=== PATIENT | male | born 1955 | race Caucasian/White ===

== ENCOUNTER 2022-05-05 13:35 | Outpatient (CLI) | payer MEDICARE, SELFPAY | END 2022-05-05 13:36 | disposition home or self-care (01) | PROVIDERS: PCP Specialist; Visit Provider Specialist | DX: L91.8 Other hypertrophic disorders of the skin (principal); L82.1 Other seborrheic keratosis | CPT/HCPCS: 88304; 88305 ==

== ENCOUNTER 2023-01-11 00:24 | Day surgery (SDC) | payer MEDICARE, SELFPAY ==
[2022-12-29 13:12] VITALS: BMI 31.6
[2023-01-11 11:54] VITALS: BP 163/71; PULSE 68; RESP 18; TEMP 36.2; O2SAT 98
--- NOTE | 2023-01-11 12:02 | P.HP_ITS ---
History of Present Illness History of Present Illness Consent: Risks, benefits, and alternatives have been discussed and questions answered. Patient agrees to proceed with procedure. Chief complaint: neoplasm screening Narrative: Hipolito Arreola is a 67 year old male Presents for screening colonoscopy. Patient reports prior colonoscopy 15 or 18 years ago was unremarkable. Patient reports his current weight appetite and bowel movements are normal. He occa sionally has bright red blood per rectum with wiping that he attributes to hemorrhoids. This occurs every couple weeks or so. Patient denies abdominal or rectal pain. Family history noncontributory. [facility] Family History Family History (Updated 06/10/22 @ 14:10 by JARRED Tan) Mother Anxiety Social History Social History (Updated 06/10/22 @ 14:11 by JARRED Tan) Smoking status: Never smoker Alcohol intake: current Substance use: never Substance use type: does not use Lack of Transportation: No Lack of Food: Never True Current Housing: I Have Housing Concerned About Future Housing: No Difficulty Paying Gas/Electric Bills: No Difficulty Paying for Meds: No Currently Unemployed: No Education: High School Diploma/GED Difficulty w/ Childcare or Family Care: No Living arrangements: other Additional living arrangements comments: with sp Occupation/Education: retired Gender identity (if verbalized by the patient): Male Meds Home Medications and Allergies Home Medications Medication Instructions Recorded Confirmed Type fluticasone propionate 50 50 mcg intranasal DAILY 06/10/22 01/11/23 History mcg/actuation nasal spray,suspension sodium chloride 0.65 % nasal spray 1 spray intranasal DAILY 12/29/22 01/11/23 History aerosol (Saline Nasal Mist) sumatriptan succinate 25 mg tablet 25 mg PO DAILY 12/29/22 01/11/23 History Allergies Allergy/AdvReac Type Severity Reaction Status Date / Time Penicillins Allergy Unknown Unknown Verified 01/11/23 11:45 Vital Signs Vital Signs - 24 hr 01/11/23 11:54 Temperature 97.1 F L Pulse Rate 68 Respiratory Rate 18 Blood Pressure 163/71 H Pulse Oximetry 98 Oxygen Delivery Room Air Exam Narrative: Physical exam reveals patient to be alert. Vital signs stable. HEENT exam is unremarkable. Patient is anicteric. Lungs are clear to auscultation and percussion. Heart is without murmur or extra sounds. Abdomen bowel sounds are present soft nontender with no organomegaly. Digital external rectal exam normal. Assessment and Plan Assessment and plan (1) Encounter for screening colonoscopy: Code(s): Z12.11 - Encounter for screening for malignant neoplasm of colon Status: Acute Assessment and Plan: Patient presents for screening colonoscopy. He appears to be at the average risk for colon polyps. Further recommendations will be given after endoscopy. (2) Rectal bleeding: Code(s): K62.5 - Hemorrhage of anus and rectum Status: Acute Assessment and Plan: Patient notes occasional bright red blood per rectum with wiping this may be from hemorrhoids high-fiber diet is encouraged. Further recommendations may be given after endoscopy.
[2023-01-11] MEDS: LACTATED RINGERS 1,000 ML 150 ML IV CONT (12:11)
[2023-01-11 13:01] VITALS: BP 100/61; PULSE 57; RESP 14; O2SAT 97
--- NOTE | 2023-01-11 13:01 | P.PNAN_ITS ---
Anes - Initial Pre Proc Eval Procedure: Operation Date: 01/11/23 13:00 Proposed Procedures p Screening Colonoscopy - Lazaro Nuñez MD Date/Time: 01/11/23 13:01 Surgeon: Lazaro Nuñez MD Pre Op Diagnosis: neoplasm screening Patient Data Age: 67 Gender: M Height: 1.85 m Weight: 110.6 kg Last Vital Signs Temp 97.1 F L 01/11/23 11:54 Pulse 68 01/11/23 11:54 Resp 18 01/11/23 11:54 BP 163/71 H 01/11/23 11:54 Pulse Ox 98 01/11/23 11:54 O2 Del Method Room Air 01/11/23 11:54 Allergies Allergy/AdvReac Type Severity Reaction Status Date / Time Penicillins Allergy Unknown Unknown Verified 01/11/23 11:45 Home Medications Medication Instructions Recorded Confirmed Type fluticasone propionate 50 50 mcg intranasal DAILY 06/10/22 01/11/23 History mcg/actuation nasal spray,suspension sodium chloride 0.65 % nasal spray 1 spray intranasal DAILY 12/29/22 01/11/23 History aerosol (Saline Nasal Mist) sumatriptan succinate 25 mg tablet 25 mg PO DAILY 12/29/22 01/11/23 History Patient hx anesthesia problems: none Family hx anesthesia problems: none Results Review: All pre-operative results and documents have been reviewed as part of the pre- operative evaluation. COUNT INCLUDES [facility] Family History Family History (Updated 06/10/22 @ 14:10 by JARRED Tan) Mother Anxiety Social History Social History (Updated 06/10/22 @ 14:11 by JARRED Tan) Smoking status: Never smoker Alcohol intake: current Substance use: never Substance use type: does not use Lack of Transportation: No Lack of Food: Never True Current Housing: I Have Housing Concerned About Future Housing: No Difficulty Paying Gas/Electric Bills: No Difficulty Paying for Meds: No Currently Unemployed: No Education: High School Diploma/GED Difficulty w/ Childcare or Family Care: No Living arrangements: other Additional living arrangements comments: with sp Occupation/Education: retired Gender identity (if verbalized by the patient): Male Anes - Eval Final PreProcedure Day of Procedure 01/11/23 13:01 Patient weight: normal Heart: regular rate and rhythm Lungs: clear to auscultation Airway: Mallampati scale class II Neurological: alert and oriented Last oral intake: >/= 8 hours ASA classification: II Emergent: no Anesthetic plan: proceed Anesthesia type and monitoring: general GIVS and standard monitoring Results Review: All pre-operative results and documents have been reviewed as part of the pre- operative evaluation. Informed Consent: The patient's anesthetic plan and its attendant risks and benefits were di scussed with the patient/family/POA. Questions were solicited and answers provided to the satisfaction of the patient/family/POA.
[2023-01-11 13:11] VITALS: BP 101/69; PULSE 60; RESP 20; O2SAT 97
[2023-01-11 13:21] VITALS: BP 123/83; PULSE 59; RESP 16; O2SAT 97
== END 2023-01-11 13:32 | disposition home or self-care (01) ==
PROVIDERS: Visit Provider Internal Medicine Gastroenterology
PROC: 0DJD8ZZ Inspection of Lower Intestinal Tract, Via Natural or Artificial Opening Endoscopic (ICD-10-PCS; CPT 45378; principal; 2023-01-11 13:00)
DX: Z12.11 Encounter for screening for malignant neoplasm of colon (principal); K64.8 Other hemorrhoids
CPT/HCPCS: G0121; J2704; J7120